=== PATIENT | female | born 1940 | race Caucasian/White ===

== ENCOUNTER → 2016-03-22 | Outpatient (CLI) | payer MEDICARE, BC | LOC: COL.VAS 10:29 | DX: I08.1 Rheumatic disorders of both mitral and tricuspid valves (principal); R01.1 Cardiac murmur, unspecified; I10 Essential (primary) hypertension ==

== ENCOUNTER → 2016-11-08 | Outpatient (CLI) | payer MEDICARE, BC | LOC: MC.RAD 10:16 | DX: Z12.31 Encounter for screening mammogram for malignant neoplasm of breast (principal) ==

== ENCOUNTER → 2017-11-22 | Outpatient (CLI) | payer MEDICARE, BC | LOC: MC.RAD 11:11 | DX: Z12.31 Encounter for screening mammogram for malignant neoplasm of breast (principal) ==

== ENCOUNTER → 2019-01-02 | Outpatient (CLI) | payer MEDICARE, BC | LOC: MC.RAD 09:24 | DX: Z12.31 Encounter for screening mammogram for malignant neoplasm of breast (principal) ==

== ENCOUNTER → 2020-01-07 | Outpatient (CLI) | payer MEDICARE, BC | LOC: MC.RAD 09:15 | DX: Z12.31 Encounter for screening mammogram for malignant neoplasm of breast (principal) ==

== ENCOUNTER → 2021-03-02 | Outpatient (CLI) | payer MEDICARE, BC | LOC: MC.RAD 08:30 | DX: Z12.31 Encounter for screening mammogram for malignant neoplasm of breast (principal) ==

== ENCOUNTER → 2023-07-22 | Outpatient (CLI) | payer MEDICARE, BC | LOC: MC.RAD 07:56 | DX: Z12.31 Encounter for screening mammogram for malignant neoplasm of breast (principal) ==

== ENCOUNTER → 2023-12-09 | Outpatient (CLI) | payer MEDICARE, BC ==
[~2023-12-09] VITALS: Ht 157.5 cm; Wt 45.4 kg
[~2023-12-09] MED LIST: CELEBREX 1100 MG/CAP PO; FYAVOLV 0.5 MG1 EACH PO; Triamcinolone 40 MG/ML 1 ML VIAL IJ SCH; ZESTRIL 20MG TA20 MG PO
[2023-12-09 12:12] VITALS: BP 167/81; PULSE 69; TEMP 97.7
[2023-12-09 13:55] VITALS: BP 158/90; PULSE 69
== END ==
LOC: COL.RAD 11:42
DX: M53.9 Dorsopathy, unspecified (principal)
CPT/HCPCS: J0665; J3301